=== PATIENT | male | born 1930 | race Caucasian/White ===

== ENCOUNTER 2016-09-16 13:40 | Emergency (ER) | payer MEDICARE ==
[~2016-09-16] VITALS: Ht 175.3 cm; Wt 104.5 kg
[~2016-09-16 13:40] MED LIST: ALPR.25 PO; ATOR10TA PO; AVOD0.5C PO; CARV25TA PO; CLOP75TA PO; GLIM2TAB PO; HYDROCODONE; ISOS20TA38 PO; JANU50TA9 PO; LISI-360 PO; META800T81 PO; OCUVTAB PO; RANI150 PO; RIVA20 PO; TAMS0.4C4 PO
[2016-09-16 13:44] VITALS: BP 162/90; PULSE 75; RESP 16; TEMP 98.1; O2SAT 99
[2016-09-16] MEDS ORDERED: CARV3.12 PO (14:01)
[2016-09-16] MEDS ORDERED: DUTA1CAP2 PO (14:01)
[2016-09-16] MEDS ORDERED: ATOR20TA15 PO (14:01)
[2016-09-16] MEDS ORDERED: JANU50TA8 PO (14:01)
[2016-09-16] MEDS ORDERED: BUTA1TAB30 PO (14:01)
[2016-09-16] MEDS ORDERED: NITR0.4S SL (14:01)
[2016-09-16] MEDS ORDERED: TAMS0.4C4 PO (14:01)
[2016-09-16] MEDS ORDERED: LISI-519 PO (14:01)
[2016-09-16] MEDS ORDERED: LYRI200C PO (14:01)
[2016-09-16] MEDS ORDERED: ALPR0.25 PO (14:01)
[2016-09-16] MEDS ORDERED: ZANT150T2 PO (14:01)
[2016-09-16] MEDS ORDERED: OCUVTAB PO (14:01)
[2016-09-16] MEDS ORDERED: ISOS30TA3 PO (14:01)
[2016-09-16] MEDS ORDERED: CLOP75TA PO (14:01)
[2016-09-16] MEDS ORDERED: XARE15TA PO (14:01)
[2016-09-16 14:18] LABS: AUTOMATED NEUTROPHIL # 3.6 TH/MM3 (1.8-7.7); BASOPHIL # 0.1 TH/MM3 (0-0.2); BASOPHIL % 1.2 % (0.0-2.0); EOSINOPHIL # 0.3 TH/MM3 (0-0.4); EOSINOPHIL % 4.2 % (0.0-4.0); HEMATOCRIT 44.3 % (39.0-51.0); HEMO FLAGS DIFF FINAL; LYMPH % 26.3 % (9.0-44.0); LYMPHOCYTE # 1.7 TH/MM3 (1.0-4.8); MEAN CELL VOLUME 96.5 FL (80.0-100.0); MEAN CORPUSCULAR HEMOGLOBIN 32.2 PG (27.0-34.0); MEAN CORPUSCULAR HGB CONC 33.3 % (32.0-36.0); MONO % 12.1 % (0.0-8.0); NEUT % 56.2 % (16.0-70.0); PLATELET COUNT 140 TH/MM3 (150-450); RED BLOOD COUNT 4.59 MIL/MM3 (4.50-5.90); RED CELL DISTRIBUTION WIDTH 13.2 % (11.6-17.2); WHITE BLOOD COUNT 6.5 TH/MM3 (4.0-11.0)
[2016-09-16 14:27] LABS: APTT (PATIENT) 33.1 SEC (24.3-30.1); INTERNATIONAL NORMALIZED RATIO 1.1 RATIO; PROTHROMBIN TIME - PATIENT 12.1 SEC (9.8-11.6)
--- NOTE | 2016-09-16 14:32 | PD ---
HPI Chief Complaint: Edema Time Seen by Provider: 14:25 Travel History International Travel<30 days: No Contact w/Intl Traveler<30days: No Traveled to known affect area: No History of Present Illness HPI 86-year-old male that presents to the ED for evaluation of swelling to the left arm with no injury. Patient states that this happened today. Patient actually has a bruise on the medial aspect of the left elbow. Nontender. Able to move the elbow fully with no discomfort. He denies any injury that he could remember. He does take Eliquis and Plavix for CVA. States that he is compliant with his medications. Doesn't take any Coumadin. Has no allergies to medication. Denies any fevers chills or sweats. Denies any recent travel. No history of blood clots. No surgeries to the area. No symptoms of any kind other than the swelling and the bruising. Symptoms are mild. Per patient is started this morning. PFSH Past Medical History Hx Anticoagulant Therapy: Yes Arthritis: Yes Asthma: No Atrial Fibrillation: Yes Autoimmune Disease: Yes Anxiety: No Depression: No Heart Rhythm Problems: Yes (a-fib) Cancer: No Cardiac Catheterization: Yes Cardiovascular Problems: Yes (HTN, CHOL, [place], STENTS) High Cholesterol: No Chemotherapy: No Chest Pain: Yes Congestive Heart Failure: No COPD: No Cerebrovascular Accident: No Diabetes: Yes Patient Takes Glucophage: No Diminished Hearing: No Endocrine: No Gastrointestinal Disorders: Yes GERD: Yes Glaucoma: No Genitourinary: No Headaches: Yes Hepatitis: No Hiatal Hernia: Yes Hypertension: Yes Kidney Stones: No Musculoskeletal: Yes Neurologic: No Psychiatric: No Reproductive: No Respiratory: No Immunizations Current: Yes Myocardial Infarction: No Radiation Therapy: No Renal Failure: No Seizures: No Sickle Cell Disease: No Sleep Apnea: No Thyroid Disease: No Ulcer: No Tetanus Vaccination: > 5 Years Influenza Vaccination: No Past Surgical History Abdominal Surgery: Yes (gallbladder removal) AICD: No Cardiac Surgery: Yes (stents x3) Cholecystectomy: Yes Coronary Stent: Yes (X3) Ear Surgery: No Endocrine Surgery: No Eye Surgery: No Genitourinary Surgery: No Gynecologic Surgery: No Joint Replacement: Yes (bilateral knees) Neurologic Surgery: No Oral Surgery: No Pacemaker: No Thoracic Surgery: No Other Surgery: Yes Social History Alcohol Use: No ( ) Tobacco Use: No Substance Use: No Allergies-Medications (Allergen,Severity, Reaction): Coded Allergies: No Known Allergies (Verified , 09/16/16) Reported Meds & Prescriptions Reported Meds & Active Scripts Active Reported Butalbital-Acetaminophen 50-325 Mg Tab 1-2 Tab PO Q4HR PRN Do not exceed 6 tablets per day. Isosorbide Mononitrate ER (Isosorbide Mononitrate) 30 Mg Markie 30 Mg PO DIRECTED Nitrostat SL (Nitroglycerin) 0.4 Mg Subl 0.4 Mg SL DIRECTED PRN 1 tablet under the tongue as needed for chest pain. Repeat every 5 minutes for a total of 3 DOSES or call 911 if NO relief. Ocuvite (Multiple Vitamins W/ Minerals) 1 Tab 2 Tab PO DAILY Zantac (Ranitidine HCl) 150 Mg Tab 150 Mg PO DAILY Lisinopril 5 Mg Tab 5 Mg PO DAILY Xarelto (Rivaroxaban) 15 Mg Tab 15 Mg PO DAILY Tamsulosin (Tamsulosin HCl) 0.4 Mg Cap 0.4 Mg PO HS Atorvastatin (Atorvastatin Calcium) 20 Mg Tab 20 Mg PO HS Carvedilol 3.125 Mg Tab 3.125 Mg PO BID Dutasteride 0.5 Mg Cap 0.5 Mg PO DAILY Clopidogrel (Clopidogrel Bisulfate) 75 Mg Tab 75 Mg PO DAILY Lyrica (Pregabalin) 200 Mg Cap 200 Mg PO HS Janumet (Sitagliptin-Metformin) 50-1,000 Mg Tab 1 Tab PO BID Alprazolam 0.25 Mg Tab 0.25 Mg PO HS PRN Review of Systems General / Constitutional: No: Fever, Chills, Weight Gain, Weight Loss, Other Eyes: No: Diploplia, Blurred Vision, Photophobia, Drainage, Redness, Foreign Body Sensation, Pain, Tearing, Blind Spots, Visual changes, Blindness, Other HENT: No: Headaches, Vertigo, Lightheadedness, Sore Throat, Rhinitis, Rhinorrhea, Congestion, Nosebleed, Neck Stiffness, Neck Pain, Masses, Gingival Bleeding, Dental Difficulties, Ear Discharge, Earache, Other Cardiovascular: No: Chest Pain or Discomfort, Palpitations, Irregular Rhythm, Tachycardia, Diaphoresis, Syncope, Dyspnea on exertion, Varicosities, Edema, Cyanosis, Varicosities, Phlebitis, Claudication, Other Respiratory: No: Cough, Shortness of Breath, Wheezing, Sneezing, Orthopnea, Hemoptysis, Stridor, Night Sweats, Pleuritic Pain, Other Gastrointestinal: No: Nausea, Vomiting, Diarrhea, Abdominal Pain, Hematemesis, Hematochezia, Constipation, Changes in Bowel Habits, Indigestion, Dysphagia, Loss of Appetite, Other Genitourinary: No: Urgency, Frequency, Dysuria, Nocturia, Hematuria, Decreased Urinary Output, Oliguria, Hesitancy, Dribbling, Incontinence, Pelvic Pain, Flank Pain, Dyspareunia, Discharge, Dysmenorrhea, Menorrhagia, Metorrhagia, Vaginal Bleeding, Other Musculoskeletal: Positive: Edema, No: Myalgias, Arthralgias, Limited ROM, Weakness, Cramping, Pain, Atrophy, Other Skin: Positive Other (bruise), No Rash, No Itching, No Dryness, No Lumps, No Hives, No Change in Pigmentation, No Change in nails, No Alopecia, No Lesions, No Breast Lumps, No Breast Tenderness, No Breast Swelling Neurologic: No: Weakness, Dizziness, Syncope, Focal Abnormalities, Coordination Problem, Tremor, Ataxia, Headache, Change in Mentation, Slurred Speech, Paresthesia, Incontinence, Seizures, Sensory Disturbance, Other Psychiatric: No: Anxiety, Depression, Suicidal Ideations, Disorder of Thought, Mood Disorder, Substance Abuse, Homicidal Ideation, Other Endocrine: No: Heat Intolerance, Cold Intolerance, Polyuria, Polydipsia, Other Hematologic/Lymphatic: No: Easy Bruising, Lymph Node Enlargement, Other Physical Exam Narrative GENERAL: SKIN: Warm and dry. HEAD: Atraumatic. Normocephalic. EYES: Pupils equal and round. No scleral icterus. No injection or drainage. ENT: No nasal bleeding or discharge. Mucous membranes pink and moist. tongue is midline. tonsils WNL. NECK: Trachea midline. No JVD. CARDIOVASCULAR: Regular rate and rhythm. RESPIRATORY: No accessory muscle use. Clear to auscultation. Breath sounds equal bilaterally. GASTROINTESTINAL: Abdomen soft, non-tender, nondistended. Hepatic and splenic margins not palpable. MUSCULOSKELETAL: Extremities without clubbing, cyanosis, or edema. No obvious deformities. Patient has full range of motion of all extremities. Patient has full range of motion of the left upper extremity with no pain. Patient does have a hematoma with bruising on the medial aspect of the elbow. No obvious deformity. Able to move the elbow fully with no pain. 2+ pulses bilaterally. No lymphadenopathy. No sign of erythema. No mass. No obvious sign of trauma NEUROLOGICAL: Awake and alert. No obvious cranial nerve deficits. Motor grossly within normal limits. Five out of 5 muscle strength in the arms and legs. Normal speech. PSYCHIATRIC: Appropriate mood and affect; insight and judgment normal. Data Data Last Documented VS Vital Signs Date Time Temp Pulse Resp B/P Pulse Ox O2 Delivery O2 Flow Rate FiO2 09/16/16 13:44 98.1 75 16 162/90 99 Orders Complete Blood Count With Diff (09/16/16 13:55) Prothrombin Time / Inr (Pt) (09/16/16 13:55) Act Partial Throm Time (Ptt) (09/16/16 13:55) Labs Laboratory Tests Test 09/16/16 13:08 White Blood Count 6.5 TH/MM3 Red Blood Count 4.59 MIL/MM3 Hemoglobin 14.7 GM/DL Hematocrit 44.3 % Mean Corpuscular Volume 96.5 FL Mean Corpuscular Hemoglobin 32.2 PG Mean Corpuscular Hemoglobin 33.3 % Concent Red Cell Distribution Width 13.2 % Platelet Count 140 TH/MM3 Mean Platelet Volume 7.9 FL Neutrophils (%) (Auto) 56.2 % Lymphocytes (%) (Auto) 26.3 % Monocytes (%) (Auto) 12.1 % Eosinophils (%) (Auto) 4.2 % Basophils (%) (Auto) 1.2 % Neutrophils # (Auto) 3.6 TH/MM3 Lymphocytes # (Auto) 1.7 TH/MM3 Monocytes # (Auto) 0.8 TH/MM3 Eosinophils # (Auto) 0.3 TH/MM3 Basophils # (Auto) 0.1 TH/MM3 CBC Comment DIFF FINAL Differential Comment MDM Medical Decision Making Medical Screen Exam Complete: Yes Emergency Medical Condition: Yes Medical Record Reviewed: Yes Differential Diagnosis Bruise versus edema versus normal exam Narrative Course 86-year-old male that presents to the ED for evaluation of edema to the left arm. Patient was properly examined and was found to have signs and symptoms consistent appears to be a bruise. No sign of trauma. No sign of active bleeding. Per his appears to be somewhat significant but is not really bothering the patient. Patient already takes Plavix and request. I believe that this is likely secondary to this. I will do basic lab work to make sure patient doesn't have to low platelets or signs of active bleeding. CBC and PT and PTT are essentially unremarkable other than for follow-up at the secondary to the medications. Patient was reassured. At this time I recommend follow-up with PCP. Ice or warm compresses. Avoid NSAID products. Take Tylenol for pain if anything. See ED for any worsening symptoms including pain, fever, chills, sensation of weakness. Diagnosis Primary Impression: Hematoma Patient Instructions: General Instructions Additional Instructions: Ice to the area. Continue taking medications as prescribed by your Doctor. Follow with PCP. See ED if any worsening symptoms. Med/Other Pt SpecificInfo: No Change to Meds Disposition: 01 DISCHARGE HOME Condition: Stable Mike De Santiago Sep 16, 2016 14:32
[2016-09-16 14:41] VITALS: BP 158/88
== END 2016-09-16 15:36 | disposition home or self-care (01) ==
LOC: PHED 13:40
DX: S50.02XA Contusion of left elbow, initial encounter (principal); I48.91 Unspecified atrial fibrillation; I25.2 Old myocardial infarction; I10 Essential (primary) hypertension; Z79.02 Long term (current) use of antithrombotics/antiplatelets; X58.XXXA Exposure to other specified factors, initial encounter; Y92.9 Unspecified place or not applicable; Y99.9 Unspecified external cause status; Y93.9 Activity, unspecified
CPT/HCPCS: 85025; 85610; 85730; 99283

== ENCOUNTER 2017-10-12 13:39 | Observation (INO) | payer MEDICARE ==
[2017-10-12] VITALS (8 sets, daily range): BP systolic 116–135; BP diastolic 57–73; PULSE 52–79; RESP 12–23; TEMP 97.5–98.1; O2SAT 95–100
[~2017-10-12 13:39] MED LIST changes: -ALPR.25 PO; +ALPR0.25 PO; -ATOR10TA PO; +ATOR20TA15 PO; -AVOD0.5C PO; +BUTA1TAB30 PO; -CARV25TA PO; +CARV3.12 PO; +DUTA1CAP2 PO; -GLIM2TAB PO; -HYDROCODONE; -ISOS20TA38 PO; +ISOS30TA3 PO; +JANU50TA8 PO; -JANU50TA9 PO; -LISI-360 PO; +LISI-519 PO; +LYRI200C PO; -META800T81 PO; +NITR0.4S SL; -RANI150 PO; -RIVA20 PO; +XARE15TA PO; +ZANT150T2 PO
[2017-10-12] MEDS ORDERED: SODIUM CHLORIDE 0.9% FLUSH 10 ML FLUSH IVF PRN (14:15)
[2017-10-12] MEDS ORDERED: SODIUM CHLORID 0.9% 500 ML INJ 500 ML IV ONE (14:15)
--- NOTE | 2017-10-12 14:31 | PD ---
HPI Chief Complaint: Chest Pain Time Seen by Provider: 14:05 Travel History International Travel<30 days: No Contact w/Intl Traveler<30days: No Traveled to known affect area: No History of Present Illness HPI 87y male with a history of atrial fibrillation, diabetes mellitus, and NH presents to the ED via [facility] for chest pain that started this morning as he was sitting at the table. Says his chest pain was located in the left anterior chest wall without radiation and lasted several seconds. Patient had multiple episodes of this chest pain today which brought him into the emergency department today. Patient says that he has took 1 nitro prior to we are EVAC's arrival which did relieve some pain. EVAC gave another nitro which relieved his pain completely. He denies shortness of breath, nausea or vomiting associated with this chest pain. Says currently his left arm feels "heavy" and points to his bicep. He denies numbness or tingling or one-sided weakness. He follows his guest services attendant regularly. Says he last saw his guest services attendant in June or July of this year. Patient had a heart cath 4-5 years ago. He does not member his last echocardiogram. Patient says he took his medications this morning to include an aspirin and xarelto. PFSH Past Medical History Hx Anticoagulant Therapy: Yes Arthritis: Yes Asthma: No Atrial Fibrillation: Yes Autoimmune Disease: Yes Anxiety: No Depression: No Heart Rhythm Problems: Yes (a-fib) Cancer: No Cardiac Catheterization: Yes Cardiovascular Problems: Yes High Cholesterol: No Chemotherapy: No Chest Pain: Yes Congestive Heart Failure: No COPD: No Cerebrovascular Accident: No Diabetes: Yes Diminished Hearing: No Endocrine: No Gastrointestinal Disorders: Yes GERD: Yes Glaucoma: No Genitourinary: No Headaches: Yes Hepatitis: No Hiatal Hernia: Yes Hypertension: Yes Kidney Stones: No Musculoskeletal: Yes Neurologic: No Psychiatric: No Reproductive: No Respiratory: No Immunizations Current: Yes Myocardial Infarction: No Radiation Therapy: No Renal Failure: No Seizures: No Sickle Cell Disease: No Sleep Apnea: No Thyroid Disease: No Ulcer: No Past Surgical History Abdominal Surgery: Yes (gallbladder removal) AICD: No Cardiac Surgery: Yes (stents x3) Cholecystectomy: Yes Coronary Stent: Yes (X3) Ear Surgery: No Endocrine Surgery: No Eye Surgery: No Genitourinary Surgery: No Gynecologic Surgery: No Joint Replacement: Yes (bilateral knees) Neurologic Surgery: No Oral Surgery: No Pacemaker: No Thoracic Surgery: No Other Surgery: Yes Social History Alcohol Use: No ( ) Tobacco Use: No Substance Use: No Allergies-Medications (Allergen,Severity, Reaction): Coded Allergies: No Known Allergies (Verified Allergy, Unknown, 10/12/17) Reported Meds & Prescriptions Reported Meds & Active Scripts Active Reported Nitrostat SL (Nitroglycerin) 0.4 Mg Subl 0.4 Mg SL DIRECTED PRN 1 tablet under the tongue as needed for chest pain. Repeat every 5 minutes for a total of 3 DOSES or call 911 if NO relief. Ocuvite (Multiple Vitamins W/ Minerals) 1 Tab 2 Tab PO DAILY Lisinopril 5 Mg Tab 5 Mg PO DAILY Xarelto (Rivaroxaban) 15 Mg Tab 15 Mg PO DAILY Tamsulosin (Tamsulosin HCl) 0.4 Mg Cap 0.4 Mg PO HS Atorvastatin (Atorvastatin Calcium) 20 Mg Tab 20 Mg PO HS Carvedilol 3.125 Mg Tab 3.125 Mg PO BID Clopidogrel (Clopidogrel Bisulfate) 75 Mg Tab 75 Mg PO DAILY Lyrica (Pregabalin) 200 Mg Cap 200 Mg PO HS Janumet (Sitagliptin-Metformin) 50-1,000 Mg Tab 1 Tab PO BID Alprazolam 0.25 Mg Tab 0.25 Mg PO HS PRN Review of Systems Except as stated in HPI: all other systems reviewed are Neg Physical Exam Narrative GENERAL: SKIN: Warm and dry. HEAD: Atraumatic. Normocephalic. EYES: Pupils equal and round. No scleral icterus. No injection or drainage. ENT: No nasal bleeding or discharge. Mucous membranes pink and moist. NECK: Trachea midline. No JVD. CARDIOVASCULAR: Regular rate and rhythm. RESPIRATORY: No accessory muscle use. Clear to auscultation. Breath sounds equal bilaterally. GASTROINTESTINAL: Abdomen soft, non-tender, nondistended. Hepatic and splenic margins not palpable. MUSCULOSKELETAL: Extremities without clubbing, cyanosis, or edema. No obvious deformities. NEUROLOGICAL: Awake and alert. No obvious cranial nerve deficits. Motor grossly within normal limits. Five out of 5 muscle strength in the arms and legs. Normal speech. PSYCHIATRIC: Appropriate mood and affect; insight and judgment normal. Data Data Last Documented VS Vital Signs Date Time Temp Pulse Resp B/P (MAP) Pulse Ox O2 Delivery O2 Flow Rate FiO2 10/12/17 14:43 57 23 126/61 (82) 99 Nasal Cannula 2.00 122/60 (80) 10/12/17 13:59 98.1 Orders Orders Electrocardiogram (10/12/17 14:05) B-Type Natriuretic Peptide (10/12/17 14:05) Ckmb (Isoenzyme) Profile (10/12/17 14:05) Complete Blood Count With Diff (10/12/17 14:05) Comprehensive Metabolic Panel (10/12/17 14:05) Magnesium (Mg) (10/12/17 14:05) Prothrombin Time / Inr (Pt) (10/12/17 14:05) Act Partial Throm Time (Ptt) (10/12/17 14:05) Troponin I (10/12/17 14:05) Ecg Monitoring (10/12/17 14:05) Bilateral Bp Monitoring (10/12/17 14:05) Iv Access Insert/Monitor (10/12/17 14:05) Oximetry (10/12/17 14:05) Oxygen Administration (10/12/17 14:05) Sodium Chloride 0.9% Flush (Ns Flush) (10/12/17 14:15) Sodium Chlorid 0.9% 500 Ml Inj (Ns 500 M (10/12/17 14:15) Chest, Pa & Lat (10/12/17 14:05) CKMB (10/12/17 14:10) CKMB% (10/12/17 14:10) Admit Order (Ed Use Only) (10/12/17 15:24) Activity Bed Rest With Brp (10/12/17 15:24) Vital Signs (Adult) Q4H (10/12/17 15:24) Cardiac Rhythm .As Directed (10/12/17 15:24) Notify Dr: Other .PRN (10/12/17 15:24) Notify Dr. Parameters (10/12/17 15:24) Resp Oxygen Nasal Cannula (10/12/17 ) Ckmb (Isoenzyme) Profile (10/12/17 17:10) Ckmb (Isoenzyme) Profile (10/12/17 20:10) Troponin I (10/12/17 17:10) Troponin I (10/12/17 20:10) Electrocardiogram (10/12/17 17:10) Electrocardiogram (10/12/17 20:10) ^ Obtain (10/12/17 15:24) Acetaminophen (Tylenol) (10/12/17 15:30) Ondansetron Inj (Zofran Inj) (10/12/17 15:30) Corrections Cadet / Telemetry KARYN.Q8H (10/12/17 15:24) Labs Laboratory Tests Test 10/12/17 14:10 White Blood Count 7.1 TH/MM3 Red Blood Count 4.25 MIL/MM3 Hemoglobin 14.1 GM/DL Hematocrit 41.9 % Mean Corpuscular Volume 98.5 FL Mean Corpuscular Hemoglobin 33.2 PG Mean Corpuscular Hemoglobin Concent 33.7 % Red Cell Distribution Width 14.4 % Platelet Count 148 TH/MM3 Mean Platelet Volume 8.0 FL Neutrophils (%) (Auto) 65.3 % Lymphocytes (%) (Auto) 18.8 % Monocytes (%) (Auto) 12.9 % Eosinophils (%) (Auto) 2.2 % Basophils (%) (Auto) 0.8 % Neutrophils # (Auto) 4.6 TH/MM3 Lymphocytes # (Auto) 1.3 TH/MM3 Monocytes # (Auto) 0.9 TH/MM3 Eosinophils # (Auto) 0.2 TH/MM3 Basophils # (Auto) 0.1 TH/MM3 CBC Comment DIFF FINAL Differential Comment Prothrombin Time 11.8 SEC Prothromb Time International Ratio 1.2 RATIO Activated Partial Thromboplast Time 30.8 SEC Blood Urea Nitrogen 22 MG/DL Creatinine 1.21 MG/DL Random Glucose 114 MG/DL Total Protein 6.9 GM/DL Albumin 3.3 GM/DL Calcium Level 8.2 MG/DL Magnesium Level 1.9 MG/DL Alkaline Phosphatase 71 U/L Aspartate Amino Transf (AST/SGOT) 26 U/L Alanine Aminotransferase (ALT/SGPT) 28 U/L Total Bilirubin 0.6 MG/DL Sodium Level 142 MEQ/L Potassium Level 4.2 MEQ/L Chloride Level 107 MEQ/L Carbon Dioxide Level 27.8 MEQ/L Anion Gap 7 MEQ/L Estimat Glomerular Filtration Rate 57 ML/MIN Total Creatine Kinase 113 U/L Creatine Kinase MB 3.7 NG/ML Troponin I LESS THAN 0.02 NG/ML B-Type Natriuretic Peptide 272 PG/ML MDM Medical Decision Making Medical Screen Exam Complete: Yes Emergency Medical Condition: Yes Differential Diagnosis NSTEMI, angina, unstable angina, costochondritis, pneumonia Narrative Course 87y male with a history of atrial fibrillation, diabetes mellitus, and NH presents to the ED via [facility] for chest pain that started this morning as he was sitting at the table. Says his chest pain was located in the left anterior chest wall without radiation and lasted several seconds. Patient had multiple episodes of this chest pain today which brought him into the emergency department today. Patient says that he has took 1 nitro prior to we are EVAC's arrival which did relieve some pain. [facility] gave another nitro which relieved his pain completely. He denies shortness of breath, nausea or vomiting associated with this chest pain. Says currently his left arm feels "heavy" and points to his bicep. He denies numbness or tingling or one-sided weakness. He follows his guest services attendant regularly. Says he last saw his guest services attendant in June or July of this year. Patient had a heart cath 4-5 years ago. He does not member his last echocardiogram. Patient says he took his medications this morning to include an aspirin and xarelto. Vital signs heart rate 53, SaO2 99%, blood pressure 122/60. Labs and imaging studies ordered. EKG shows sinus bradycardia. Last Impressions Chest X-Ray 10/12/17 1405 Signed Impressions: Service Date/Time: Thursday, October 12, 2017 14:27 - CONCLUSION: 1. Cardiomegaly. 2. No focal infiltrate or pulmonary vascular congestion. Theodore Alas MD CBC & BMP Diagram 10/12/17 14:10 Total Protein 6.9, Albumin 3.3 L, Calcium Level 8.2 L, Magnesium Level 1.9, Alkaline Phosphatase 71, Aspartate Amino Transf (AST/SGOT) 26, Alanine Aminotransferase (ALT/SGPT) 28, Total Bilirubin 0.6 Troponin negative, CK-MB 3.7, BNP 272. After review the EMR, it appears that patient has had an elevated BNP over 400 in 2014. Patient denies shortness of breath or chest pain at this point. Patient does have risk factors and should be admitted for observation to the chest pain center. I spoke with the son and patient and they agree to the plan. Diagnosis Primary Impression: Angina at rest Admitting Information Admitting Physician Requests: Observation Condition: Stable Janee Davey Oct 12, 2017 14:31
[2017-10-12 14:32] LABS: AUTOMATED NEUTROPHIL # 4.6 TH/MM3 (1.8-7.7); BASOPHIL # 0.1 TH/MM3 (0-0.2); BASOPHIL % 0.8 % (0.0-2.0); EOSINOPHIL # 0.2 TH/MM3 (0-0.4); EOSINOPHIL % 2.2 % (0.0-4.0); HEMATOCRIT 41.9 % (39.0-51.0); HEMOGLOBIN 14.1 GM/DL (13.0-17.0); LYMPH % 18.8 % (9.0-44.0); LYMPHOCYTE # 1.3 TH/MM3 (1.0-4.8); MEAN CELL VOLUME 98.5 FL (80.0-100.0); MEAN CORPUSCULAR HEMOGLOBIN 33.2 PG (27.0-34.0); MEAN CORPUSCULAR HGB CONC 33.7 % (32.0-36.0); MONO % 12.9 % (0.0-8.0); MONOCYTE # 0.9 TH/MM3 (0-0.9); NEUT % 65.3 % (16.0-70.0); PLATELET COUNT 148 TH/MM3 (150-450); RED BLOOD COUNT 4.25 MIL/MM3 (4.50-5.90); RED CELL DISTRIBUTION WIDTH 14.4 % (11.6-17.2); WHITE BLOOD COUNT 7.1 TH/MM3 (4.0-11.0)
[2017-10-12 14:40] LABS: INTERNATIONAL NORMALIZED RATIO 1.2 RATIO; PROTHROMBIN TIME - PATIENT 11.8 SEC (9.8-11.6)
--- NOTE | 2017-10-12 14:45 | RADRPT ---
EXAM DATE/TIME: 10/12/2017 14:27 [facility] COMPARISON: No previous studies available for comparison. INDICATIONS : Chest pain. MEDICAL HISTORY : None. SURGICAL HISTORY : Cardiac stents. ENCOUNTER: Initial ACUITY: 1 day PAIN SCORE: 8/10 LOCATION: Bilateral chest FINDINGS: The heart is enlarged. The pulmonary vascular pattern is normal. The lungs are clear. CONCLUSION: 1. Cardiomegaly. 2. No focal infiltrate or pulmonary vascular congestion. Theodore Alas MD on October 12, 2017 at 14:42 Board Certified Radiologist. This report was verified electronically.
[2017-10-12 14:52] LABS: ALBUMIN 3.3 GM/DL (3.4-5.0); ALT (GPT) 28 U/L (12-78); AST (GOT) 26 U/L (15-37); BICARBONATE 27.8 MEQ/L (21.0-32.0); BLOOD UREA NITROGEN 22 MG/DL (7-18); CALCIUM 8.2 MG/DL (8.5-10.1); CHLORIDE 107 MEQ/L (98-107); CREATININE 1.21 MG/DL (0.60-1.30); GLOMERULAR FILTRATION RATE 57 ML/MIN (>89); GLUCOSE,RANDOM 114 MG/DL (74-106); MAGNESIUM 1.9 MG/DL (1.5-2.5); SODIUM (NA) 142 MEQ/L (136-145)
[2017-10-12 14:56] LABS: ALKALINE PHOSPHATASE 71 U/L (45-117); TOTAL BILIRUBIN ADULT 0.6 MG/DL (0.2-1.0); TOTAL PROTEIN 6.9 GM/DL (6.4-8.2); TROPONIN I LESS THAN 0.02 NG/ML (0.02-0.05)
[2017-10-12] MEDS ORDERED: ONDANSETRON HCL 4 MG/2 ML VIAL IV PUSH PRN ×2 (15:30→16:15)
[2017-10-12] MEDS ORDERED: ACETAMINOPHEN 500 MG CPLT PO PRN ×2 (15:30→16:15)
[2017-10-12] MEDS ORDERED: ACETAMINOPHEN/HYDROcodone 325 MG/7.5 MG TAB PO PRN (16:15)
[2017-10-12] MEDS ORDERED: ALPRAZolam 0.25 MG TAB PO PRN (16:30)
--- NOTE | 2017-10-12 16:48 | HHI.HP ---
[facility] Primary Care Physician Raul Morerll MD Chief Complaint Chest pain History of Present Illness This is a 87-year-old male with history of diabetes, hypertension, hyperlipidemia, atrial fibrillation, and CAD with stents of the LAD, proximal obtuse marginal, and distal right coronary that presents to ED with plan of chest discomfort that began about 830 this morning. He was at home when it began. Is a sharp discomfort lasting a split second but recurred 10-12 times. No associated shortness of breath, nausea, or diaphoresis. It does not feel similar to symptoms he had when eating stents in the past. Last stress test was a little more year ago while in [place] and he states that it was okay. Last cardiac catheterization upon reviewing records was a heart cath in 2014 at this facility revealing mild to moderate three-vessel disease with patent stent of the proximal LAD, proximal obtuse marginal, and distal right coronary. Denies recent illness. Denies fevers or chills. Voices compliance with all medications. Review of Systems General: Patient denies fevers, chills, and recent travel. HEENT: Patient denies headache, sore throat, difficulty swallowing. Cardiovascular: Has the chest discomfort as mentioned above. Denies sensation of heart beating rapidly or irregularly. No syncope. Denies diaphoresis. Respiratory: Denies shortness of breath or inspirational chest discomfort. Denies coughing wheezing or hemoptysis. GI: Patient denies nausea, vomiting, diarrhea, abdominal pain, bloody stools. Musculoskeletal: Patient denies joint pain or edema. Denies calf pain or edema. Neurovascular: Patient denies numbness, tingling, weakness in extremities. Denies headache. Endocrine: Denies polyuria and polydipsia. Hematologic: Denies easy bruising. Skin: Denies rash or itching. Past Family Social History Allergies: Coded Allergies: No Known Allergies (Verified , 09/16/16) Past Medical History CAD with stents. Hypertension, hyperlipidemia, diabetes, and atrial fibrillation. Past Surgical History Heart catheterizations with stenting as well as diagnostic. Cholecystectomy. Bilateral knees. Reported Medications Reported Meds & Active Scripts Active Reported Nitrostat SL (Nitroglycerin) 0.4 Mg Subl 0.4 Mg SL DIRECTED PRN 1 tablet under the tongue as needed for chest pain. Repeat every 5 minutes for a total of 3 DOSES or call 911 if NO relief. Ocuvite (Multiple Vitamins W/ Minerals) 1 Tab 2 Tab PO DAILY Lisinopril 5 Mg Tab 5 Mg PO DAILY Xarelto (Rivaroxaban) 15 Mg Tab 15 Mg PO DAILY Tamsulosin (Tamsulosin HCl) 0.4 Mg Cap 0.4 Mg PO HS Atorvastatin (Atorvastatin Calcium) 20 Mg Tab 20 Mg PO HS Carvedilol 3.125 Mg Tab 3.125 Mg PO BID Clopidogrel (Clopidogrel Bisulfate) 75 Mg Tab 75 Mg PO DAILY Lyrica (Pregabalin) 200 Mg Cap 200 Mg PO HS Janumet (Sitagliptin-Metformin) 50-1,000 Mg Tab 1 Tab PO BID Alprazolam 0.25 Mg Tab 0.25 Mg PO HS PRN Active Ordered Medications Current Medications Medications (Trade) Dose Ordered Sig/Karina Route Start Time Stop Time Status Last Admin (NS Flush) 2 ml UNSCH PRN IVF 10/12/17 14:15 10/12/17 14:29 (Tylenol) 500 mg Q4H PRN PO 10/12/17 15:30 (Zofran Inj) 4 mg Q6H PRN IV PUSH 10/12/17 15:30 (Tylenol) 500 mg Q4H PRN PO 10/12/17 16:15 UNV (Hudson 7.5-325 Mg) 1 tab Q4H PRN PO 10/12/17 16:15 UNV (Zofran Inj) 4 mg Q6H PRN IV PUSH 10/12/17 16:15 UNV (Protonix) 40 mg DAILY PO 10/12/17 16:15 UNV (Xanax) 0.25 mg HS PRN PO 10/12/17 16:30 UNV (Lipitor) 20 mg HS PO 10/12/17 21:00 UNV (Coreg) 3.125 mg BID PO 10/12/17 21:00 UNV (Plavix) 75 mg DAILY PO 10/13/17 09:00 UNV (Prinivil) 5 mg DAILY PO 10/13/17 09:00 UNV (Lyrica) 200 mg HS PO 10/12/17 21:00 UNV (Flomax) 0.4 mg HS PO 10/12/17 21:00 UNV Family History There is family history of CAD. Social History Non-smoker. Denies alcohol or illicit drug use. Physical Exam Vital Signs Vital Signs Date Time Temp Pulse Resp B/P (MAP) Pulse Ox O2 Delivery O2 Flow Rate FiO2 10/12/17 14:43 57 23 126/61 (82) 99 Nasal Cannula 2.00 122/60 (80) 10/12/17 14:29 Nasal Cannula 2.00 10/12/17 14:29 98 Nasal Cannula 2.00 10/12/17 14:02 25 100 Room Air 10/12/17 13:59 98.1 79 18 118/66 (83) 100 Physical Exam GENERAL: This is a well-nourished, well-developed patient, in no apparent distress. Patient speaks in clear complete sentences. Patient is pleasant. HEENT: Head is atraumatic and normocephalic. Neck is supple without lymphadenopathy and trachea is midline. No JVD or carotid bruits. CARDIOVASCULAR: Irregularly irregular rate and rhythm without murmur gallop or rub. Rate in the 50s. RESPIRATORY: Clear to auscultation. Breath sounds equal bilaterally. No wheezes , rales, or rhonchi. Chest wall is nontender. No use of accessory muscles. GASTROINTESTINAL: Abdomen is nontender, nondistended. Abdomen soft. No obvious pulsatile mass or bruit. No CVA tenderness. Strong femoral pulses bilaterally. Normal bowel sounds in all quadrants. MUSCULOSKELETAL: Patient is moving upper and lower extremities freely. No calf tenderness or edema, no Homans sign. Strong pulses in upper and lower extremities. NEUROLOGICAL: Patient is alert and oriented. Cranial nerves 2-12 are grossly intact. No focal deficits and speech is clear. SKIN: No rash and turgor is normal. Laboratory Laboratory Tests Test 10/12/17 14:10 White Blood Count 7.1 Red Blood Count 4.25 Hemoglobin 14.1 Hematocrit 41.9 Mean Corpuscular Volume 98.5 Mean Corpuscular Hemoglobin 33.2 Mean Corpuscular Hemoglobin Concent 33.7 Red Cell Distribution Width 14.4 Platelet Count 148 Mean Platelet Volume 8.0 Neutrophils (%) (Auto) 65.3 Lymphocytes (%) (Auto) 18.8 Monocytes (%) (Auto) 12.9 Eosinophils (%) (Auto) 2.2 Basophils (%) (Auto) 0.8 Neutrophils # (Auto) 4.6 Lymphocytes # (Auto) 1.3 Monocytes # (Auto) 0.9 Eosinophils # (Auto) 0.2 Basophils # (Auto) 0.1 CBC Comment DIFF FINAL Differential Comment Prothrombin Time 11.8 Prothromb Time International Ratio 1.2 Activated Partial Thromboplast Time 30.8 Blood Urea Nitrogen 22 Creatinine 1.21 Random Glucose 114 Total Protein 6.9 Albumin 3.3 Calcium Level 8.2 Magnesium Level 1.9 Alkaline Phosphatase 71 Aspartate Amino Transf (AST/SGOT) 26 Alanine Aminotransferase (ALT/SGPT) 28 Total Bilirubin 0.6 Sodium Level 142 Potassium Level 4.2 Chloride Level 107 Carbon Dioxide Level 27.8 Anion Gap 7 Estimat Glomerular Filtration Rate 57 Total Creatine Kinase 113 Creatine Kinase MB 3.7 Troponin I LESS THAN 0.02 B-Type Natriuretic Peptide 272 Result Diagram: 10/12/17 1410 10/12/17 1410 Imaging Last 48 hours Impressions Chest X-Ray 10/12/17 1405 Signed Impressions: Service Date/Time: Thursday, October 12, 2017 14:27 - CONCLUSION: 1. Cardiomegaly. 2. No focal infiltrate or pulmonary vascular congestion. Theodore Alas MD Course Initial EKG his age fibrillation rate of 54. No significant ST elevations. Nonspecific ST depression laterally. Caprini VTE Risk Assessment Caprini VTE Risk Assessment: Mod/High Risk (score >= 2) Caprini Risk Assessment Model Point Value = 1 Point Value = 2 Point Value = 3 Point Value = 5 Age 41-60 Minor surgery BMI > 25 kg/m2 Swollen legs Varicose veins or History of unexplained or recurrent spontaneous Oral contraceptives or hormone replacement Sepsis (< 1 month) Serious lung disease, including pneumonia (< 1 month) Abnormal pulmonary function Acute myocardial infarction Congestive heart failure (< 1 month) History of inflammatory bowel disease Medical patient at bed rest Age 61-74 Arthroscopic surgery Major open surgery (> 45 min) Laparoscopic surgery (> 45 min) Malignancy Confined to bed (> 72 hours) Immobilizing plaster cast Central venous access Age >= 75 History of VTE Family history of VTE Factor V Leiden Prothrombin [id number] Lupus anticoagulant Anticardiolipin antibodies Elevated serum homocysteine Heparin-induced thrombocytopenia Other congenital or acquired thrombophilia Stroke (< 1 month) Elective arthroplasty Hip, pelvis, or leg fracture Acute spinal cord injury (< 1 month) Prophylaxis Regimen Total Risk Factor Score Risk Level Prophylaxis Regimen 0-1 Low Early ambulation 2 Moderate Order ONE of the following: *Sequential Compression Device (SCD) *Heparin 5000 units SQ BID 3-4 Higher Order ONE of the following medications: *Heparin 5000 units SQ TID *Enoxaparin/Lovenox 40 mg SQ daily (WT < 150 kg, CrCl > 30 mL/min) *Enoxaparin/Lovenox 30 mg SQ daily (WT < 150 kg, CrCl > 10-29 mL/min) *Enoxaparin/Lovenox 30 mg SQ BID (WT < 150 kg, CrCl > 30 mL/min) AND/OR *Sequential Compression Device (SCD) 5 or more Highest Order ONE of the following medications: *Heparin 5000 units SQ TID (Preferred with Epidurals) *Enoxaparin/Lovenox 40 mg SQ daily (WT < 150 kg, CrCl > 30 mL/min) *Enoxaparin/Lovenox 30 mg SQ daily (WT < 150 kg, CrCl > 10-29 mL/min) *Enoxaparin/Lovenox 30 mg SQ BID (WT < 150 kg, CrCl > 30 mL/min) AND *Sequential Compression Device (SCD) Assessment and Plan Assessment and Plan * Chest pain: The symptoms appear atypical. He will continue to have serial cardiac enzymes and EKGs for ruling out purposes. He will see Dr. Cramer of cardiology in the chest pain center. I spoke with Dr. Irvin. Patient will have a Lexiscan in the morning if he rules out. He would be discharged home if the stress test is nonischemic with instructions to follow-up with PCP and cardiology. Return to ED for interval issues. * Diabetes: Sliding scale insulin coverage while in chest pain center. Resume medication at discharge. Follow diabetic diet. * Hypertension: Continue medications. * Hyperlipidemia: Continue medications. * History of CAD: We will reassess with stress testing. Continue meds. Follow- up with cardiology. * A. fib: Continue medications. Will hold Xarelto in the morning pending results of stress test. If the stress test were abnormal he might need cardiac catheterization. Patient is stable at this time. He is agreeable to this plan. Yg Nagel Oct 12, 2017 16:48
[2017-10-12] MEDS: PANTOPRAZOLE SOD 40 MG DELAYED RELEASE TAB PO SCH (17:46)
[2017-10-12 18:36] LABS: TROPONIN I LESS THAN 0.02 NG/ML (0.02-0.05)
[2017-10-12] MEDS: CARVEDILOL 3.125 MG TAB PO SCH (20:00)
[2017-10-12 20:48] LABS: TROPONIN I 0.02 NG/ML (0.02-0.05)
[2017-10-12] MEDS ORDERED: ATORVASTATIN 20 MG TAB PO SCH (21:00)
[2017-10-12] MEDS ORDERED: PREGABALIN 100 MG CAP PO SCH (21:00)
[2017-10-12] MEDS ORDERED: TAMSULOSIN HCL 0.4 MG CAP PO SCH (21:00)
[2017-10-13 03:36] VITALS: BP 168/78; PULSE 91; RESP 19; TEMP 98.1; O2SAT 95
[2017-10-13 04:33] VITALS: PULSE 82
[2017-10-13 07:10] VITALS: PULSE 71
[2017-10-13 08:00] VITALS: BP 102/58; PULSE 87; RESP 18; TEMP 99.6; O2SAT 92
[2017-10-13] MEDS: CARVEDILOL 3.125 MG TAB PO SCH (08:44)
[2017-10-13] MEDS: PANTOPRAZOLE SOD 40 MG DELAYED RELEASE TAB PO SCH (08:46)
[2017-10-13] MEDS ORDERED: LISINOPRIL 5 MG TAB PO SCH (09:00)
[2017-10-13] MEDS ORDERED: CLOPIDOGREL 75 MG TAB PO SCH (09:00)
[2017-10-13] MEDS ORDERED: REGADENOSON INJ 0.4 MG/5 ML SYR ONE (09:15)
--- NOTE | 2017-10-13 11:54 | EKG ---
Date Performed: 10/12/2017 Time Performed: 20:34:54 PTAGE: 87 years EKG: ATRIAL FIBRILLATION WITH ABERRANT CONDUCTION OR VENTRICULAR PREMATURE COMPLEXES LOW QRS VOL TAGE IN EXTREMITY LEADS PATTERN CONSISTENT WITH PULMONARY DISEASE INFERIOR MYOCARDIAL INFARCTION ABNO RMAL ECG PREVIOUS TRACING : 10/12/2017 17.17 Compared to previous tracing, PVCs no longer present. DOCTOR: Charli Marquez Interpretating Date/Time 10/13/2017 11:53:08
--- NOTE | 2017-10-13 12:03 | EKG ---
Date Performed: 10/12/2017 Time Performed: 17:17:58 PTAGE: 87 years EKG: ATRIAL FIBRILLATION WITH SLOW VENTRICULAR RESPONSE PATTERN CONSISTENT WITH PULMONARY DISEAS E LEFT ANTERIOR FASCICULAR BLOCK INFERIOR MYOCARDIAL INFARCTION ABNORMAL ECG PREVIOUS TRACING : 10/12/2017 14.08 Since previous tracing, no significant change noted DOCTOR: Charli Marquez Interpretating Date/Time 10/13/2017 12:02:19
--- NOTE | 2017-10-13 12:04 | EKG ---
Date Performed: 10/12/2017 Time Performed: 14:08:37 PTAGE: 87 years EKG: ATRIAL FIBRILLATION WITH SLOW VENTRICULAR RESPONSE INCOMPLETE RIGHT BUNDLE BRANCH BLOCK LEF T ANTERIOR FASCICULAR BLOCK INFERIOR MYOCARDIAL INFARCTION ABNORMAL ECG PREVIOUS TRACING : 09/23/2014 18.42 Since previous tracing, no significant change noted DOCTOR: Charli Marquez Interpretating Date/Time 10/13/2017 12:03:47
--- NOTE | 2017-10-13 12:14 | RADRPT ---
EXAM DATE/TIME: 10/13/2017 10:08 [facility] COMPARISON: No previous studies available for comparison. INDICATIONS : Left chest pain. Angina. Atrial fibrillation. DOSE: 27.3 mCi Tc99m Myoview at stress. 8.8 mCi Tc99m Myoview at rest. 0.4 mg Lexiscan STRESS SYMPTOMS: None noted. EJECTION FRACTION: 60% MEDICAL HISTORY : Myocardial infarction. Hernia, hiatal. Gastroesophageal reflux disease. Diabetes. Hypertension. SURGICAL HISTORY : Total knee replacement, right. Total knee replacement, left. Cholecystectomy. ENCOUNTER: Initial ACUITY: 1 day PAIN SCALE: 7/10 LOCATION: Left chest TECHNIQUE: The patient underwent pharmacologic stress with infusion of prescribed dose. Continuous ECG tracing was monitored during stress. Gated SPECT imaging was performed after stress and conventional SPECT i maging was performed at rest. The examination was performed on a SPECT/CT scanner, both attenuation and non-corrected datasets were reviewed. FINDINGS: DISTRIBUTION: The maximum perfused segment at stress is in the anterolateral wall. PERFUSION STUDY: The ventricular cavity is dilated. The exam demonstrates a large in size, severe, fixed perfusion def ect involving the cardiac apex and a large portion of the inferior wall. No definite reversible perfu dolores defect is identified. GATED STUDY: There is intact wall motion and thickening without hypokinetic or dyskinetic segments. 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 No reversible perfusion defect is identified. Ejection fraction is within normal limits. RISK CATEGORY: Low (<1% Annual Mortality Rate) Ketan Trinh MD on October 13, 2017 at 12:08 Board Certified Radiologist. This report was verified electronically.
--- NOTE | 2017-10-13 12:32 | HHI.DCPOC ---
Discharge Care Plan Diagnosis: (1) Chest pain (2) CAD (coronary artery disease) (3) HTN (hypertension) (4) DM (diabetes mellitus) (5) Atrial fibrillation Goals to Promote Your Health * To prevent worsening of your condition and complications * To maintain your health at the optimal level Directions to Meet Your Goals Take your medications as prescribed Follow your dietary instruction Follow activity as directed Keep your appointments as scheduled Take your immunizations and boosters as scheduled If your symptoms worsen call your PCP, if no PCP go to Urgent Care Center or Emergency Room Smoking is Dangerous to Your Health. Avoid second hand smoke Call the 24-hour hour crisis hotline for domestic abuse at Yg Nagel Oct 13, 2017 12:32
--- NOTE | 2017-10-13 17:06 | TR ---
Date Performed: 10/13/2017 Time Performed: 10:38:12 DOCTOR: Charli Marquez DRUG LIST: CLINICAL HISTORY: REASON FOR TEST: CHEST PAIN REASON FOR ENDING: OBSERVATION: CONCLUSION: Lexiscan stress test was performed under standard four minute protocol. Radionuclid e was injected one minute prior to ending the test. No electrocardiographic abormalities were present to suggest ischemia. Nuclear imaging and interpretation are pending. COMMENTS:
[2017-10-13] MEDS ORDERED: metFORMIN HCL 500 MG TAB PO SCH (21:00)
== END 2017-10-13 14:17 | disposition home or self-care (01) ==
LOC: NEPC 13:39 → NEDA 15:27 → NEPGCP 17:09
PROVIDERS: ADMIT Internal Medicine Interventional Cardiology; ATTEND Internal Medicine Interventional Cardiology
DX: R07.89 Other chest pain (principal); I25.10 Atherosclerotic heart disease of native coronary artery without angina pectoris; E78.5 Hyperlipidemia, unspecified; I11.9 Hypertensive heart disease without heart failure; I51.7 Cardiomegaly; I45.2 Bifascicular block; R94.31 Abnormal electrocardiogram [ECG] [EKG]; I48.91 Unspecified atrial fibrillation; E11.9 Type 2 diabetes mellitus without complications; K21.9 Gastro-esophageal reflux disease without esophagitis; Z95.5 Presence of coronary angioplasty implant and graft; Z79.899 Other long term (current) drug therapy
CPT/HCPCS: 71046; 78452; 80053; 82550; 82552; 83735; 83880; 84484; 85025; 85610; 85730; 93005; 93017; 96360; 96361; 99285; A9502; G0378; J2785; J7040